=== PATIENT | male | born 1955 | race Caucasian/White ===

== ENCOUNTER 2017-04-02 08:56 | Inpatient (IN) | payer BC ==
[2017-04-02] MEDS ORDERED: Sodium Chloride 0.9% 1,000 ML IV ONE ×2 (09:38→10:29)
[2017-04-02] MEDS ORDERED: Sodium Chloride 0.9% 10 ML Syringe FLUSH PRN (09:38)
--- NOTE | 2017-04-02 09:53 | EDM.PDOC ---
ED HPI GENERAL MEDICAL PROBLEM - General Chief Complaint: Headache Stated Complaint: ? FLU Time Seen by Provider: 04/02/17 09:38 Source of Information: Reports: Patient History Limitations: Reports: No Limitations - History of Present Illness INITIAL COMMENTS - FREE TEXT/NARRATIVE: patient comes emergency Department today with complaints of cough congestion has been going on for the past 7 days. He has had a headache cough congestion and shortness of breath for the past 7 days. He has had a subjective fever and chills. He has not checked his temperature. He has recently developed a congested cough that is green mucus and production. He does smoke 2 packs of cigarettes a day. He denies any past medical history medication taking. He does complain of some diarrhea as well over the past 2-3 days. He denies any vomiting but has had some nausea. No abdominal pain. No hematuria dysuria or urinary frequency. He does complain of generalized fatigue and malaise although he does not have any body aches. He has not tried anything for his symptoms over the past week. He has not been evaluated for this over the past week.denies any chest pain or pressure in his chest. Headache Pain Score (Numeric/FACES): 4 - Related Data Allergies Allergy/AdvReac Type Severity Reaction Status Date / Time No Known Allergies Allergy Verified 04/02/17 11:27 Home Meds: Home Meds . [No Known Home Meds] 04/02/17 [History] Past Medical History - Past Surgical History Musculoskeletal Surgical History: Reports: Other (See Below) Other Musculoskeletal Surgeries/Procedures:: back surgery Social & Family History - Tobacco Use Smoking Status *Q: Current Every Day Smoker Years of Tobacco use: 30 Packs/Tins Daily: 2 - Caffeine Use Caffeine Use: Reports: Coffee, Soda - Alcohol Use Days Per Week of Alcohol Use: 3 Number of Drinks Per Day: 6 Total Drinks Per Week: 18 - Recreational Drug Use Recreational Drug Use: No ED ROS GENERAL - Review of Systems Review Of Systems: ROS reveals no pertinent complaints other than HPI. ED EXAM, GENERAL - Physical Exam Exam: See Below Exam Limited By: No Limitations General Appearance: Alert, WD/WN Eye Exam: Bilateral Eye: Normal Inspection Ears: Normal External Exam, Normal Canal, Normal TMs Ear Exam: Bilateral Ear: Auricle Normal, TM normal Nose: Normal Inspection, Normal Mucosa, No Blood Throat/Mouth: Normal Inspection, Normal Lips, Normal Teeth, Normal Gums, Normal Oropharynx, Normal Voice Head: Atraumatic, Normocephalic Neck: Normal Inspection, Supple, Non-Tender, Full Range of Motion Respiratory/Chest: No Respiratory Distress, No Accessory Muscle Use, Decreased Breath Sounds (throughout.), Wheezing (inspiratory and expiratory mild bilaterally.). No: Rales, Rhonchi, Stridor, Accessory Muscle Use Cardiovascular: Normal Peripheral Pulses, Regular Rate, Rhythm, No Edema, No JVD , No Murmur, No Rub GI/Abdominal: Normal Bowel Sounds, Soft, Non-Tender, No Organomegaly, No Distention, No Abnormal Bruit (Male) Exam: Deferred Rectal (Males) Exam: Deferred Back Exam: Normal Inspection, Full Range of Motion Extremities: Normal Inspection, Normal Range of Motion, Non-Tender, No Pedal Edema, Normal Capillary Refill Neurological: Alert, Oriented, CN II-XII Intact Psychiatric: Normal Affect, Normal Mood Skin Exam: Warm, Dry, Intact, Normal Color Course - Vital Signs Last Recorded V/S: Last Vital Signs Temp 37.9 C 04/02/17 15:31 Pulse 73 04/02/17 15:31 Resp 20 04/02/17 15:31 BP 124/76 04/02/17 15:31 Pulse Ox 95 04/02/17 15:31 Vital Signs 04/02/17 15:31 Temperature [ 37.9 C Temporal] Pulse, 73 Peripheral [ Left Pulse Oximetry] Respiratory 20 Rate Blood Pressure 124/76 [Right Upper Arm] O2 Sat by Pulse 95 Oximetry - Orders/Labs/Meds Orders: Active Orders 24 hr Category Date Time Status Peripheral IV Care [RC] 09,21 Care 04/02/17 09:38 Active RT Aerosol Therapy [RC] ASDIRECTED Care 04/02/17 10:40 Active CULTURE BLOOD [BC] Stat Lab 04/02/17 11:00 Received CULTURE BLOOD [BC] Stat Lab 04/02/17 11:05 Results CULTURE SPUTUM + SMEAR [RM] Stat Lab 04/02/17 12:15 Results Sodium Chloride 0.9% [Saline Flush] Med 04/02/17 09:38 Active 10 ml FLUSH ASDIRECTED PRN Blood Culture x2 Reflex Set [OM.PC] Stat Oth 04/02/17 10:47 Ordered Peripheral IV Insertion Adult [OM.PC] Stat Oth 04/02/17 09:38 Ordered Medication Orders Acetaminophen (Tylenol) 650 mg PO Q4H PRN PRN Reason: Pain (Mild 1-3)/fever Albuterol/Ipratropium (Duoneb 3.0-0.5 Mg/3 Ml) 3 ml NEB Q6HRRT PRN PRN Reason: sob Guaifenesin (Robitussin) 100 mg PO Q6H PRN PRN Reason: Cough Heparin Sodium (Porcine) (Heparin Sodium) 5,000 units SUBCUT Q8HR [facility] Last Admin: 04/02/17 21:42 Dose: 5,000 units Admin: 04/02/17 14:50 Dose: 5,000 units Azithromycin 500 mg/ Sodium (Chloride) 250 mls @ 250 mls/hr IV Q24H SANDRA Ceftriaxone Sodium 1,000 mg/ (Sodium Chloride) 50 mls @ 100 mls/hr IV Q24H SANDRA Potassium Chloride/Sodium Chloride (Normal Saline With 20 Meq Kcl) 1,000 mls @ 75 mls/hr IV ASDIRECTED [facility] Last Admin: 04/02/17 13:18 Dose: 75 mls/hr Ibuprofen (Motrin) 400 mg PO Q6H PRN PRN Reason: Pain (moderate 4-6) Nicotine (Habitrol) 21 mg TRDERM DAILY [facility] Last Admin: 04/02/17 12:09 Dose: 21 mg Ondansetron HCl (Zofran Odt) 4 mg PO Q4H PRN PRN Reason: nausea, able to take PO Pantoprazole Sodium (Protonix) 40 mg PO BIDAC [facility] Last Admin: 04/02/17 21:10 Dose: 40 mg Sodium Chloride (Saline Flush) 10 ml FLUSH ASDIRECTED PRN PRN Reason: Keep Vein Open Last Admin: 04/02/17 09:55 Dose: 10 ml Zolpidem Tartrate (Ambien) 5 mg PO BEDTIME PRN PRN Reason: Sleep Last Admin: 04/02/17 21:42 Dose: 5 mg Labs: Laboratory Tests 04/02/17 04/02/17 04/02/17 Range/Units 09:48 09:48 09:48 WBC 14.8 H (5.0-10.0) 10^3/uL RBC 5.10 (4.6-6.2) 10^6/uL Hgb 16.1 (14.0-18.0) g/dL Hct 43.1 (40.0-54.0) % MCV 84.5 (80-100) fL MCH 31.6 (27.0-34.0) pg MCHC 37.4 H (33.0-35.0) g/dL Plt Count 146 L (150-450) 10^3/uL Neut % (Auto) 82.5 H (42.2-75.2) % Lymph % (Auto) 10.2 L (20.5-50.1) % Garrett % (Auto) 7.2 (2-8) % Eos % (Auto) 0.0 L (1.0-3.0) % Baso % (Auto) 0.1 (0.0-1.0) % Sodium 116 L* (135-145) mmol/L Potassium 4.7 (3.6-5.0) mmol/L Chloride 80 L (101-111) mmol/L Carbon Dioxide 26.0 (21.0-31.0) mmol/L Anion Gap 14.7 BUN 10 (7-18) mg/dL Creatinine 0.6 (0.6-1.3) mg/dL Est Cr Clr Drug Dosing 134.40 mL/min Estimated GFR (MDRD) > 60 BUN/Creatinine Ratio 16.66 Glucose 125 H (74-105) mg/dL Lactic Acid (0.5-2.2) mmol/L Calcium 8.3 L (8.4-10.2) mg/dl Magnesium (1.8-2.5) mg/dL Total Bilirubin 0.5 (0.2-1.0) mg/dL AST 34 (10-42) IU/L ALT 22 (10-60) IU/L Alkaline Phosphatase 70 (42-121) IU/L C-Reactive Protein 15.1 H (0.0-1.3) mg/dL Total Protein 6.5 L (6.7-8.2) g/dl Albumin 3.5 (3.2-5.5) g/dl Globulin 3.0 Albumin/Globulin Ratio 1.17 18 04/02/17 Range/Units 09:48 09:48 WBC (5.0-10.0) 10^3/uL RBC (4.6-6.2) 10^6/uL Hgb (14.0-18.0) g/dL Hct (40.0-54.0) % MCV (80-100) fL MCH (27.0-34.0) pg MCHC (33.0-35.0) g/dL Plt Count (150-450) 10^3/uL Neut % (Auto) (42.2-75.2) % Lymph % (Auto) (20.5-50.1) % Garrett % (Auto) (2-8) % Eos % (Auto) (1.0-3.0) % Baso % (Auto) (0.0-1.0) % Sodium (135-145) mmol/L Potassium (3.6-5.0) mmol/L Chloride (101-111) mmol/L Carbon Dioxide (21.0-31.0) mmol/L Anion Gap BUN (7-18) mg/dL Creatinine (0.6-1.3) mg/dL Est Cr Clr Drug Dosing mL/min Estimated GFR (MDRD) BUN/Creatinine Ratio Glucose (74-105) mg/dL Lactic Acid 1.4 (0.5-2.2) mmol/L Calcium (8.4-10.2) mg/dl Magnesium 1.7 L (1.8-2.5) mg/dL Total Bilirubin (0.2-1.0) mg/dL AST (10-42) IU/L ALT (10-60) IU/L Alkaline Phosphatase (42-121) IU/L C-Reactive Protein (0.0-1.3) mg/dL Total Protein (6.7-8.2) g/dl Albumin (3.2-5.5) g/dl Globulin Albumin/Globulin Ratio Meds: Medications Generic Name Dose Route Start Last Admin Trade Name Freq PRN Reason Stop Dose Admin Acetaminophen 650 mg 04/02/17 11:54 Tylenol PO Q4H PRN Pain (Mild 1-3)/fever Albuterol/Ipratropium 3 ml 04/02/17 11:50 Duoneb 3.0-0.5 Mg/3 Ml NEB Q6HRRT PRN sob Guaifenesin 100 mg 04/02/17 11:53 Robitussin PO Q6H PRN Cough Heparin Sodium (Porcine) 5,000 units 04/02/17 14:00 04/02/17 21:42 Heparin Sodium SUBCUT 5,000 units Q8HR SANDRA Administration Azithromycin 500 mg/ Sodium 250 mls @ 250 mls/hr 04/03/17 12:00 Chloride IV Q24H SANDRA Ceftriaxone Sodium 1,000 mg/ 50 mls @ 100 mls/hr 04/03/17 12:00 Sodium Chloride IV Q24H SANDRA Potassium Chloride/Sodium Chloride 1,000 mls @ 75 mls/hr 04/02/17 12:00 04/02 13:18 Normal Saline With 20 Meq Kcl IV 75 mls/hr ASDIRECTED SANDRA Administration Ibuprofen 400 mg 04/02/17 11:54 Motrin PO Q6H PRN Pain (moderate 4-6) Nicotine 21 mg 04/02/17 13:00 04/02/17 12:09 Habitrol TRDERM 21 mg DAILY SANDRA Administration Ondansetron HCl 4 mg 04/02/17 11:54 Zofran Odt PO Q4H PRN nausea, able to take PO Pantoprazole Sodium 40 mg 04/02/17 21:00 04/02/17 21:10 Protonix PO 40 mg BIDAC SANDRA Administration Sodium Chloride 10 ml 04/02/17 09:38 04/02/17 09:55 Saline Flush FLUSH 10 ml ASDIRECTED PRN Administration Keep Vein Open Zolpidem Tartrate 5 mg 04/02/17 11:54 04/02/17 21:42 Ambien PO 5 mg BEDTIME PRN Administration Sleep Discontinued Medications Generic Name Dose Route Start Last Admin Trade Name Freq PRN Reason Stop Dose Admin Albuterol/Ipratropium 3 ml 04/02/17 10:39 04/02/17 10:52 Duoneb 3.0-0.5 Mg/3 Ml NEB 04/02/17 10:40 3 ml ONETIME ONE Administration Ceftriaxone Sodium 1 gm 04/02/17 10:47 04/02/17 11:05 Rocephin IVPUSH 04/02/17 10:48 1 gm ONETIME ONE Administration Sodium Chloride 1,000 mls @ 999 mls/hr 04/02/17 09:38 04/02/17 13:17 Normal Saline IV 04/02/17 10:38 Infused .BOLUS ONE Infusion Sodium Chloride 1,000 mls @ 999 mls/hr 04/02/17 10:29 04/02/17 12:28 Normal Saline IV 04/02/17 11:29 999 mls/hr .BOLUS ONE Infusion Azithromycin 500 mg/ Sodium 250 mls @ 250 mls/hr 04/02/17 10:47 04/02/17 11: 05 Chloride IV 04/02/17 11:46 250 mls/hr ONETIME ONE Administration - Radiology Interpretation Free Text/Narrative:: Chest x-ray per radiology patchy opacity right middle lobe consistent with atelectasis and/or pneumonia. Hyperinflation consistent with COPD. - Re-Assessments/Exams Free Text/Narrative Re-Assessment/Exam: 04/02/17 10:56 I reviewed the laboratory findings with the patient as well as his chest x-ray. I explained to him it is most likely consistent with a COPD exacerbation although he's never been diagnosed with it. With his 2 pack a day smoking history ever since he was a very young child this a probably be a new diagnosis for COPD although he needs pulmonary function tests to be definitive. With his elevated white count as well as his severe hyponatremia without confusion I feel that inpatient management is appropriate at this time. He was given Rocephin as well as azithromycin in the emergency department and a DuoNeb with improvement of shortness of breath. We are unable to test him for influenza as we're out of testing kits. He'll be admitted for further care management and workup. Departure - Departure Time of Disposition: 10:54 Disposition: Admitted As Inpatient 68 Clinical Impression: Hyponatremia, Acute exacerbation of chronic obstructive pulmonary disease (COPD ) - Discharge Information ED Communication - Discussed Case With (1) Discussed Case With (1): Admitting Provider (Dr. Davidson, [facility] ER COURSE findings and concerns were relayed to DR. Davidson especially the hyponatremia and new diagnosis of COPD. He accepted the patient in admit at this time. The patient is comfortable with the plan.) - My Orders Last 24 Hours: My Active Orders 04/02/17 09:38 Peripheral IV Care [RC] 09,21 Sodium Chloride 0.9% [Saline Flush] 10 ml FLUSH ASDIRECTED PRN Peripheral IV Insertion Adult [OM.PC] Stat 04/02/17 10:40 RT Aerosol Therapy [RC] ASDIRECTED 04/02/17 10:47 Blood Culture x2 Reflex Set [OM.PC] Stat 04/02/17 11:00 CULTURE BLOOD [BC] Stat 04/02/17 11:05 CULTURE BLOOD [BC] Stat 04/02/17 12:15 CULTURE SPUTUM + SMEAR [RM] Stat - Assessment/Plan Last 24 Hours: My Active Orders 04/02/17 09:38 Peripheral IV Care [RC] 09,21 Sodium Chloride 0.9% [Saline Flush] 10 ml FLUSH ASDIRECTED PRN Peripheral IV Insertion Adult [OM.PC] Stat 04/02/17 10:40 RT Aerosol Therapy [RC] ASDIRECTED 04/02/17 10:47 Blood Culture x2 Reflex Set [OM.PC] Stat 04/02/17 11:00 CULTURE BLOOD [BC] Stat 04/02/17 11:05 CULTURE BLOOD [BC] Stat 04/02/17 12:15 CULTURE SPUTUM + SMEAR [RM] Stat Assessment:: New diagnosis of COPD, with acute exacerbation. RML pneumonia vs atelectasis most likely pneumonia with elevated WBC. Severe hyponatremia without confusion. Plan[facility] for further care and management.
[2017-04-02 10:14] LABS: CHLORIDE,CL 80 mmol/L (101-111)
[2017-04-02 10:22] LABS: SODIUM,NA 116 mmol/L (135-145)
[2017-04-02] MEDS ORDERED: Albuterol/Ipratropium 3.0-0.5 MG/3 ML Neb Soln NEB ONE (10:39)
[2017-04-02] MEDS ORDERED: Azithromycin 500 MG in Sodium Chloride 0.9% 250 ML IV ONE (10:47)
[2017-04-02] MEDS ORDERED: cefTRIAXone 1 GM Vial IVPUSH ONE (10:47)
[2017-04-02] MEDS ORDERED: Albuterol/Ipratropium 3.0-0.5 MG/3 ML Neb Soln NEB PRN (11:50)
[2017-04-02] MEDS ORDERED: guaiFENesin 100 MG/5 ML Soln 5 ML UD Cup PO PRN (11:53)
[2017-04-02] MEDS ORDERED: Ibuprofen 400 MG Tab PO PRN (11:54)
[2017-04-02] MEDS ORDERED: Ondansetron 4 MG Tab.DIS PO PRN (11:54)
[2017-04-02] MEDS ORDERED: Acetaminophen 325 MG Tab PO PRN (11:54)
--- NOTE | 2017-04-02 12:06 | PCM.HP ---
H&P History of Present Illness - General Date of Service: 04/02/17 Admit Problem/Dx: Admission Diagnosis/Problem Admission Diagnosis/Problem Hyponatremia Source of Information: Patient - History of Present Illness Initial Comments - Free Text/Narative: The patient is a 62-year-old gentleman who has not been following with medical services. He has been smoking heavily about 2 packs per day and drinking twice a week 6 beers a day. He is taking no medication. He lives alone About a week prior to this presentation the patient has developed subjective fever, chills, diarrhea, diffuse muscle ache. Had an episode of nausea yesterday and has very little oral intake. He has been trying to drink a lot of water. Has cough with greenish sputum production. This is associated with mild shortness of breath. Headache Pain Score (Numeric/FACES): 4 - Related Data Allergies/Adverse Reactions: Allergies Allergy/AdvReac Type Severity Reaction Status Date / Time No Known Allergies Allergy Verified 04/02/17 11:27 Home Medications: Home Meds . [No Known Home Meds] 04/02/17 [History] Past Medical History Respiratory History: Reports: Bronchitis, Recurrent - Infectious Disease History Infectious Disease History: Reports: Chicken Pox - Past Surgical History Musculoskeletal Surgical History: Reports: Other (See Below) Other Musculoskeletal Surgeries/Procedures:: back surgery Social & Family History - Family History Family Medical History: Noncontributory - Tobacco Use Smoking Status *Q: Current Every Day Smoker Years of Tobacco use: 30 Packs/Tins Daily: 2 Second Hand Smoke Exposure: No - Caffeine Use Caffeine Use: Reports: Coffee, Soda - Alcohol Use Days Per Week of Alcohol Use: 3 Number of Drinks Per Day: 6 Total Drinks Per Week: 18 - Recreational Drug Use Recreational Drug Use: No H&P Review of Systems - Review of Systems: Review Of Systems: See Below General: Reports: Fever, Chills, Malaise (Subjective), Weakness, Fatigue HEENT: Reports: Sore Throat Pulmonary: Reports: Shortness of Breath (Mild). Denies: Wheezing Cardiovascular: Denies: Chest Pain, Palpitations, Edema Gastrointestinal: Reports: Diarrhea, Nausea Psychiatric: Denies: Confusion Exam - Exam Exam: See Below - Vital Signs Vital Signs: Last Vital Signs Temp 36.6 C 04/02/17 11:26 Pulse 80 04/02/17 11:26 Resp 20 04/02/17 11:26 BP 142/70 H 04/02/17 11:26 Pulse Ox 98 04/02/17 11:26 Weight: 69.853 kg - Exam General: Alert, Oriented Neck: Supple Lungs: Clear to Auscultation, Normal Respiratory Effort. No: Wheezing Cardiovascular: Regular Rate, Regular Rhythm GI/Abdominal Exam: Normal Bowel Sounds, Soft, Non-Tender, No Distention Back Exam: Normal Inspection Extremities: No Pedal Edema Skin: Warm, Dry, Intact Neuro Extensive - Mental Status: Alert, Oriented x3, Normal Mood/Affect Neuro Extensive - Motor, Sensory, Reflexes: Normal Gait Psychiatric: Alert, Normal Affect, Normal Mood - Patient Data Result Diagrams: 04/02/17 09:48 04/02/17 09:48 *Q Meaningful Use (ADM) - VTE *Q VTE Criteria *Q: - Stroke *Q Stroke Criteria *Q: - AMI *Q AMI Criteria *Q: - Problem List (1) Pneumonia and influenza Status: Acute Current Visit: Yes (2) Acute exacerbation of chronic obstructive pulmonary disease (COPD) SNOMED Code(s): 458913667 ICD Code: J44.1 - CHRONIC OBSTRUCTIVE PULMONARY DISEASE W (ACUTE) EXACERBATION Status: Acute Current Visit: Yes (3) Hyponatremia SNOMED Code(s): 71237822 ICD Code: E87.1 - HYPO-OSMOLALITY AND HYPONATREMIA Status: Acute Current Visit: Yes Problem List Initiated/Reviewed/Updated: Yes Orders Last 24hrs: Active Orders 24 hr Category Date Time Status Patient Status [ADT] Routine ADT 04/02/17 11:54 Ordered Antiembolic Devices [RC] PER UNIT ROUTINE Care 04/02/17 11:56 Ordered Oxygen Therapy [RC] PRN Care 04/02/17 11:54 Ordered RT Aerosol Therapy [RC] ASDIRECTED Care 04/02/17 11:50 Ordered Up With Assistance [RC] ASDIRECTED Care 04/02/17 11:54 Ordered VTE/DVT Education [RC] PER UNIT ROUTINE Care 04/02/17 11:54 Ordered Vital Signs [RC] Q4H Care 04/02/17 11:54 Ordered Regular Diet [DIET] Diet 04/02/17 Lunch Ordered BASIC METABOLIC PANEL,BMP [CHEM] AM Lab 04/03/17 05:15 Ordered BASIC METABOLIC PANEL,BMP [CHEM] Routine Lab 04/02/17 16:00 Ordered CBC WITH AUTO DIFF [HEME] AM Lab 04/03/17 05:15 Ordered Acetaminophen [Tylenol] Med 04/02/17 11:54 Ordered 650 mg PO Q4H PRN Albuterol/Ipratropium [DuoNeb 3.0-0.5 MG/3 ML] Med 04/02/17 11:50 Ordered 3 ml NEB Q6HRRT PRN Azithromycin [Zithromax] 500 mg Med 04/03/17 12:00 Ordered Sodium Chloride 0.9% [Normal Saline] 250 ml IV Q24H Heparin Sodium Med 04/02/17 14:00 Ordered 5,000 units SUBCUT Q8HR Ibuprofen [Motrin] Med 04/02/17 11:54 Ordered 400 mg PO Q6H PRN Nicotine [Habitrol] Med 04/02/17 13:00 Ordered 21 mg TRDERM DAILY Ondansetron [Zofran ODT] Med 04/02/17 11:54 Ordered 4 mg PO Q4H PRN Sodium Chloride 0.9% with KCl 20 mEq @ 75 mL/Hr (1000 Med 04/02/17 12:00 Ordered mL) NS + KCl 20mEq/L [Normal Saline with 20 mEq KCl] 1,000 ml IV ASDIRECTED Zolpidem [Ambien] Med 04/02/17 11:54 Ordered 5 mg PO BEDTIME PRN cefTRIAXone [Rocephin] 1,000 mg Med 04/03/17 12:00 Ordered Sodium Chloride 0.9% [Normal Saline] 50 ml IV Q24H guaiFENesin [Robitussin] Med 04/02/17 11:53 Ordered 100 mg PO Q6H PRN Antiembolic Hose [OM.PC] Per Unit Routine Oth 04/02/17 11:55 Ordered Resuscitation Status Routine Resus Stat 04/02/17 11:54 Ordered Medication Orders Acetaminophen (Tylenol) 650 mg PO Q4H PRN PRN Reason: Pain (Mild 1-3)/fever Albuterol/Ipratropium (Duoneb 3.0-0.5 Mg/3 Ml) 3 ml NEB Q6HRRT PRN PRN Reason: sob Guaifenesin (Robitussin) 100 mg PO Q6H PRN PRN Reason: Cough Heparin Sodium (Porcine) (Heparin Sodium) 5,000 units SUBCUT Q8HR SANDRA Azithromycin 500 mg/ Sodium (Chloride) 250 mls @ 250 mls/hr IV Q24H SANDRA Ceftriaxone Sodium 1,000 mg/ (Sodium Chloride) 50 mls @ 100 mls/hr IV Q24H SANDRA Potassium Chloride/Sodium Chloride (Normal Saline With 20 Meq Kcl) 1,000 mls @ 75 mls/hr IV ASDIRECTED SANDRA Ibuprofen (Motrin) 400 mg PO Q6H PRN PRN Reason: Pain (moderate 4-6) Nicotine (Habitrol) 21 mg TRDERM DAILY SANDRA Ondansetron HCl (Zofran Odt) 4 mg PO Q4H PRN PRN Reason: nausea, able to take PO Sodium Chloride (Saline Flush) 10 ml FLUSH ASDIRECTED PRN PRN Reason: Keep Vein Open Last Admin: 04/02/17 09:55 Dose: 10 ml Zolpidem Tartrate (Ambien) 5 mg PO BEDTIME PRN PRN Reason: Sleep Assessment/Plan Comment:: The patient is a 62-year-old with no significant medical history. He has been a heavy smoker all his life. Presented with muscle ache chills, subjective fever, sore throat, Noted to have a right middle lobe opacity on chest x-ray. #1 likely acute influenza or other upper respiratory tract viral infection Unfortunately, as a testing acute is not available. Symptoms started a week ago, I do not think he would benefit from Tamiflu treatment. Supportive management with IV fluids Tylenol. There is concern for bacterial superinfection with cough, green sputum, possible bacterial pneumonia. We will obtain sputum culture, blood culture. Treat empirically with azithromycin and ceftriaxone. #2 severe hyponatremia This is likely acute. Free water intake, diarrhea, infectious symptoms. The patient received normal saline IV fluid in the emergency room. Continue hydration. Recheck sodium in about 4 hours. #3 smoking cessation was discussed #4 DVT prophylaxis will be subcutaneous heparin
[2017-04-02] MEDS: Nicotine 21 MG/24 Hr Patch TRDERM SCH (12:09)
[2017-04-02] MEDS: NS + KCl 20mEq/L 1,000 ML IV SCH (13:18)
[2017-04-02] MEDS: Heparin Sodium 5,000 Units/ML Vial SUBCUT SCH ×2 (14:50→21:42)
[2017-04-02 16:23] LABS: CHLORIDE,CL 86 mmol/L (101-111)
[2017-04-02 16:26] LABS: SODIUM,NA 119 mmol/L (135-145)
[2017-04-02] MEDS: Pantoprazole 40 MG Tab.CR PO SCH (21:10)
[2017-04-02] MEDS: Zolpidem 5 MG Tab PO PRN (21:42)
[2017-04-03] MEDS: NS + KCl 20mEq/L 1,000 ML IV SCH ×2 (01:54→17:37)
[2017-04-03] MEDS: Pantoprazole 40 MG Tab.CR PO SCH ×2 (06:08→16:56)
[2017-04-03] MEDS: Heparin Sodium 5,000 Units/ML Vial SUBCUT SCH ×3 (06:09→21:36)
[2017-04-03 06:39] LABS: CHLORIDE,CL 91 mmol/L (101-111); SODIUM,NA 122 mmol/L (135-145)
[2017-04-03] MEDS: Nicotine 21 MG/24 Hr Patch TRDERM SCH (08:58)
[2017-04-03] MEDS ORDERED: cefTRIAXone 1,000 MG in Sodium Chloride 0.9% 50 ML IV SCH (12:00)
[2017-04-03] MEDS ORDERED: Azithromycin 500 MG in Sodium Chloride 0.9% 250 ML IV SCH (12:00)
[2017-04-03] MEDS: Sodium Chloride 1 GM Tab PO SCH ×2 (13:05→20:41)
[2017-04-03 16:31] LABS: CHLORIDE,CL 93 mmol/L (101-111); SODIUM,NA 123 mmol/L (135-145)
--- NOTE | 2017-04-03 17:13 | PCM.PN ---
- General Info Date of Service: 04/03/17 Admission Dx/Problem (Free Text): Admission Diagnosis/Problem Admission Diagnosis/Problem Hyponatremia Subjective Update: Feeling better, less cough. Less shortness of breath. No associated chest pain. Has been up and moving around. - Review of Systems General: Denies: Fever, Weakness Pulmonary: Denies: Shortness of Breath Cardiovascular: Denies: Chest Pain, Edema Genitourinary: Denies: Dysuria - Patient Data Vitals - Most Recent: Last Vital Signs Temp 36.8 C 04/03/17 15:54 Pulse 80 04/03/17 15:54 Resp 20 04/03/17 15:54 BP 130/86 04/03/17 15:54 Pulse Ox 97 04/03/17 15:54 Weight - Most Recent: 69.853 kg I&O - Last 24 Hours: Intake & Output 04/03/17 04/03/17 04/03/17 06:59 14:59 22:59 Intake Total 828 1843 200 Output Total 350 Balance 478 1843 200 Lab Results Last 24 Hours: Laboratory Results - last 24 hr 04/03/17 04/03/17 04/03/17 Range/Units 05:50 05:50 16:03 WBC 11.8 H (5.0-10.0) 10^3/uL RBC 4.24 L (4.6-6.2) 10^6/uL Hgb 13.3 L D (14.0-18.0) g/dL Hct 36.9 L (40.0-54.0) % MCV 87.0 (80-100) fL MCH 31.4 (27.0-34.0) pg MCHC 36.0 H (33.0-35.0) g/dL Plt Count 171 (150-450) 10^3/uL Neut % (Auto) 72.8 (42.2-75.2) % Lymph % (Auto) 15.5 L (20.5-50.1) % [place] % (Auto) 11.5 H (2-8) % Eos % (Auto) 0.1 L (1.0-3.0) % Baso % (Auto) 0.1 (0.0-1.0) % Sodium 122 L 123 L (135-145) mmol/L Potassium 4.9 4.6 (3.6-5.0) mmol/L Chloride 91 L 93 L (101-111) mmol/L Carbon Dioxide 25.0 22.0 (21.0-31.0) mmol/L Anion Gap 10.9 12.6 BUN 6 L 9 (7-18) mg/dL Creatinine 0.7 0.6 (0.6-1.3) mg/dL Est Cr Clr Drug Dosing 110.88 129.36 mL/min Estimated GFR (MDRD) > 60 > 60 Glucose 95 80 (74-105) mg/dL Calcium 8.0 L 7.8 L (8.4-10.2) mg/dl Justin Results Last 24 Hours: Microbiology 04/02/17 12:15 Gram Stain - Final Sputum - Expectorated Sputum Culture - Preliminary Med Orders - Current: Current Medications Acetaminophen (Tylenol) 650 mg PO Q4H PRN PRN Reason: Pain (Mild 1-3)/fever Albuterol/Ipratropium (Duoneb 3.0-0.5 Mg/3 Ml) 3 ml NEB Q6HRRT PRN PRN Reason: sob Guaifenesin (Robitussin) 100 mg PO Q6H PRN PRN Reason: Cough Last Admin: 04/02/17 23:02 Dose: 100 mg Heparin Sodium (Porcine) (Heparin Sodium) 5,000 units SUBCUT Q8HR [facility] Last Admin: 04/03/17 13:36 Dose: 5,000 units Azithromycin 500 mg/ Sodium (Chloride) 250 mls @ 250 mls/hr IV Q24H [facility] Last Infusion: 04/03/17 15:17 Dose: Infused Ceftriaxone Sodium 1,000 mg/ (Sodium Chloride) 50 mls @ 100 mls/hr IV Q24H [facility] Last Admin: 04/03/17 12:30 Dose: 100 mls/hr Potassium Chloride/Sodium Chloride (Normal Saline With 20 Meq Kcl) 1,000 mls @ 75 mls/hr IV ASDIRECTED [facility] Last Admin: 04/03/17 01:54 Dose: 75 mls/hr Ibuprofen (Motrin) 400 mg PO Q6H PRN PRN Reason: Pain (moderate 4-6) Nicotine (Habitrol) 21 mg TRDERM DAILY [facility] Last Admin: 04/03/17 08:58 Dose: 21 mg Ondansetron HCl (Zofran Odt) 4 mg PO Q4H PRN PRN Reason: nausea, able to take PO Pantoprazole Sodium (Protonix) 40 mg PO BIDAC [facility]DRA Last Admin: 04/03/17 16:56 Dose: 40 mg Sodium Chloride (Saline Flush) 10 ml FLUSH ASDIRECTED PRN PRN Reason: Keep Vein Open Last Admin: 04/02/17 09:55 Dose: 10 ml Sodium Chloride (Sodium Chloride) 1 gm PO TID SANDRA Last Admin: 04/03/17 13:05 Dose: 1 gm Zolpidem Tartrate (Ambien) 5 mg PO BEDTIME PRN PRN Reason: Sleep Last Admin: 04/02/17 21:42 Dose: 5 mg Discontinued Medications Albuterol/Ipratropium (Duoneb 3.0-0.5 Mg/3 Ml) 3 ml NEB ONETIME ONE Stop: 04/02/17 10:40 Last Admin: 04/02/17 10:52 Dose: 3 ml Ceftriaxone Sodium (Rocephin) 1 gm IVPUSH ONETIME ONE Stop: 04/02/17 10:48 Last Admin: 04/02/17 11:05 Dose: 1 gm Sodium Chloride (Normal Saline) 1,000 mls @ 999 mls/hr IV .BOLUS ONE Stop: 04/02/17 10:38 Last Infusion: 04/02/17 13:17 Dose: Infused Sodium Chloride (Normal Saline) 1,000 mls @ 999 mls/hr IV .BOLUS ONE Stop: 04/02/17 11:29 Last Infusion: 04/02/17 12:28 Dose: 999 mls/hr Azithromycin 500 mg/ Sodium (Chloride) 250 mls @ 250 mls/hr IV ONETIME ONE Stop: 04/02/17 11:46 Last Admin: 04/02/17 11:05 Dose: 250 mls/hr - Exam General: Alert, Oriented Neck: Supple Lungs: Normal Respiratory Effort, Decreased Breath Sounds Cardiovascular: Regular Rate, Regular Rhythm GI/Abdominal Exam: Normal Bowel Sounds, Soft, Non-Tender Extremities: No Pedal Edema Skin: Warm, Dry Psy/Mental Status: Alert, Normal Affect, Normal Mood - Problem List & Annotations (1) Pneumonia and influenza Status: Acute Current Visit: Yes (2) Acute exacerbation of chronic obstructive pulmonary disease (COPD) SNOMED Code(s): 636329270 Code(s): J44.1 - CHRONIC OBSTRUCTIVE PULMONARY DISEASE W (ACUTE) EXACERBATION Status: Acute Current Visit: Yes (3) Hyponatremia SNOMED Code(s): 08632800 Code(s): E87.1 - HYPO-OSMOLALITY AND HYPONATREMIA Status: Acute Current Visit: Yes - Problem List Review Problem List Initiated/Reviewed/Updated: Yes - My Orders Last 24 Hours: My Active Orders 04/02/17 21:00 Pantoprazole [ProTONIX] 40 mg PO BIDAC 04/03/17 12:00 Azithromycin [Zithromax] 500 mg Sodium Chloride 0.9% [Normal Saline] 250 ml IV Q24H cefTRIAXone [Rocephin] 1,000 mg Sodium Chloride 0.9% [Normal Saline] 50 ml IV Q24H 04/03/17 14:00 Sodium Chloride 1 gm PO TID 04/04/17 05:15 BASIC METABOLIC PANEL,BMP [CHEM] AM CBC WITH AUTO DIFF [HEME] AM - Plan Plan:: The patient is a 62-year-old with no significant medical history. He has been a heavy smoker all his life. Presented with muscle ache chills, subjective fever, sore throat, Noted to have a right middle lobe opacity on chest x-ray. #1 likely acute influenza or other upper respiratory tract viral infection Unfortunately, as a testing acute is not available. Symptoms started a week ago, I do not think he would benefit from Tamiflu treatment. Supportive management with IV fluids Tylenol. There is concern for bacterial superinfection with cough, green sputum, possible bacterial pneumonia. Pending sputum culture, blood culture. Treat empirically with azithromycin and ceftriaxone. #2 severe hyponatremia This is likely acute due to Free water intake, diarrhea, infectious symptoms. Possible SIADH slowly Improving with normal saline IV fluid Continue hydration. Recheck sodium in Am. start Nacl Tabs free water restriction #3 smoking cessation was discussed #4 DVT prophylaxis will be subcutaneous heparin
[2017-04-03] MEDS: Zolpidem 5 MG Tab PO PRN (21:35)
[2017-04-04] MEDS: Pantoprazole 40 MG Tab.CR PO SCH (05:33)
[2017-04-04] MEDS: Heparin Sodium 5,000 Units/ML Vial SUBCUT SCH (05:35)
[2017-04-04 06:45] LABS: CHLORIDE,CL 95 mmol/L (101-111); SODIUM,NA 125 mmol/L (135-145)
[2017-04-04] MEDS: NS + KCl 20mEq/L 1,000 ML IV SCH (06:46)
--- NOTE | 2017-04-04 09:22 | PCM.DCSUM1 ---
Discharge Summary - Hospital Course Free Text/Narrative:: The patient is a 62-year-old with no significant medical history. He has been a heavy smoker all his life. Presented with muscle ache chills, subjective fever, sore throat, Noted to have a right middle lobe opacity on chest x-ray. #1 likely acute influenza or other upper respiratory tract viral infection Unfortunately, as a testing is not available. Symptoms started a week ago, I do not think he would benefit from Tamiflu treatment. Treated with supportive management with IV fluids Tylenol. There is concern for bacterial superinfection with cough, green sputum, possible bacterial pneumonia. Pending sputum culture, blood culture. Treated empirically with azithromycin and ceftriaxone. discharge on Levofloxacin He likely has underlying COPD use albuterol inhaler when necessary #2 severe hyponatremia This is likely acute due to Free water intake, diarrhea, infectious symptoms. Possible SIADH with lung process Urine osm pending, urine Na>100 slowly Improved with normal saline IV fluid free water restriction start Nacl Tabs recheck in a few days #3 smoking cessation was discussed #4 establish PMD - Discharge Data Discharge Date: 04/04/17 Discharge Disposition: Home, Self-Care 01 Condition: Good - Discharge Diagnosis/Problem(s) (1) Pneumonia and influenza Status: Acute Current Visit: Yes (2) Acute exacerbation of chronic obstructive pulmonary disease (COPD) SNOMED Code(s): 753839027 ICD Code: J44.1 - CHRONIC OBSTRUCTIVE PULMONARY DISEASE W (ACUTE) EXACERBATION Status: Acute Current Visit: Yes (3) Hyponatremia SNOMED Code(s): 30605346 ICD Code: E87.1 - HYPO-OSMOLALITY AND HYPONATREMIA Status: Acute Current Visit: Yes - Patient Instructions Diet: Fluid Restriction Activity: As Tolerated - Discharge Plan Prescriptions/Med Rec: Albuterol [IJD: Ventolin HFA] 2 puff INH Q6H PRN #18 gm PRN Reason: sob Levofloxacin 500 mg PO DAILY #7 tablet Nicotine [Nicotine Patch] 21 mg TD DAILY #10 patch.td24 Sodium Chloride 1 gm PO TID #90 tablet Home Medications: Home Meds Albuterol [IJD: Ventolin HFA] 2 puff INH Q6H PRN #18 gm 04/04/17 [Rx] Levofloxacin 500 mg PO DAILY #7 tablet 04/04/17 [Rx] Nicotine [Nicotine Patch] 21 mg TD DAILY #10 patch.td24 04/04/17 [Rx] Sodium Chloride 1 gm PO TID #90 tablet 04/04/17 [Rx] Referrals: PCP,None [Primary Care Provider] - (establish new PMD - any provider - seen on Tuesday with BMP re: hyponatremia, cbc re: pneumonia) - General Info Date of Service: 04/04/17 Subjective Update: Feeling well, less cough. Less shortness of breath. No associated chest pain. Has been up and moving around. - Review of Systems General: Denies: Fever Pulmonary: Denies: Shortness of Breath Gastrointestinal: Denies: Abdominal Pain Neurological: Denies: Confusion - Patient Data Vitals - Most Recent: Last Vital Signs Temp 36.4 C 04/04/17 07:54 Pulse 71 04/04/17 07:54 Resp 20 04/04/17 07:54 BP 128/78 04/04/17 07:54 Pulse Ox 97 04/04/17 07:54 Weight - Most Recent: 69.853 kg I&O - Last 24 hours: Intake & Output 04/03/17 04/04/17 04/04/17 22:59 06:59 14:59 Intake Total 2459 850 Output Total 200 Balance 2259 850 Lab Results - Last 24 hrs: Laboratory Results - last 24 hr 04/03/17 04/03/17 04/04/17 Range/Units 16:03 18:45 06:00 WBC 13.7 H (5.0-10.0) 10^3/uL RBC 4.15 L (4.6-6.2) 10^6/uL Hgb 12.9 L (14.0-18.0) g/dL Hct 36.7 L (40.0-54.0) % MCV 88.4 (80-100) fL MCH 31.1 (27.0-34.0) pg MCHC 35.1 H (33.0-35.0) g/dL Plt Count 221 (150-450) 10^3/uL Neut % (Auto) 72.9 (42.2-75.2) % Lymph % (Auto) 12.3 L (20.5-50.1) % [place] % (Auto) 14.5 H (2-8) % Eos % (Auto) 0.1 L (1.0-3.0) % Baso % (Auto) 0.2 (0.0-1.0) % Add Manual Diff Yes Neutrophils % (Manual) 79 H (42-75) % Lymphocytes % (Manual) 10 L (20-50) % Monocytes % (Manual) 11 H (2-8) % Sodium 123 L (135-145) mmol/L Potassium 4.6 (3.6-5.0) mmol/L Chloride 93 L (101-111) mmol/L Carbon Dioxide 22.0 (21.0-31.0) mmol/L Anion Gap 12.6 BUN 9 (7-18) mg/dL Creatinine 0.6 (0.6-1.3) mg/dL Est Cr Clr Drug Dosing 129.36 mL/min Estimated GFR (MDRD) > 60 Glucose 80 (74-105) mg/dL Calcium 7.8 L (8.4-10.2) mg/dl Ur Random Sodium 106 (40-220) mmol/L /18 Range/Units 06:00 WBC (5.0-10.0) 10^3/uL RBC (4.6-6.2) 10^6/uL Hgb (14.0-18.0) g/dL Hct (40.0-54.0) % MCV (80-100) fL MCH (27.0-34.0) pg MCHC (33.0-35.0) g/dL Plt Count (150-450) 10^3/uL Neut % (Auto) (42.2-75.2) % Lymph % (Auto) (20.5-50.1) % [place] % (Auto) (2-8) % Eos % (Auto) (1.0-3.0) % Baso % (Auto) (0.0-1.0) % Add Manual Diff Neutrophils % (Manual) (42-75) % Lymphocytes % (Manual) (20-50) % Monocytes % (Manual) (2-8) % Sodium 125 L (135-145) mmol/L Potassium 4.3 (3.6-5.0) mmol/L Chloride 95 L (101-111) mmol/L Carbon Dioxide 24.0 (21.0-31.0) mmol/L Anion Gap 10.3 BUN 6 L (7-18) mg/dL Creatinine 0.6 (0.6-1.3) mg/dL Est Cr Clr Drug Dosing 129.36 mL/min Estimated GFR (MDRD) > 60 Glucose 92 (74-105) mg/dL Calcium 8.0 L (8.4-10.2) mg/dl Ur Random Sodium (40-220) mmol/L DIMPLE Results - Last 24 hrs: Microbiology 04/02/17 12:15 Gram Stain - Final Sputum - Expectorated Sputum Culture - Preliminary Med Orders - Current: Current Medications Acetaminophen (Tylenol) 650 mg PO Q4H PRN PRN Reason: Pain (Mild 1-3)/fever Last Admin: 04/04/17 05:33 Dose: 650 mg Albuterol/Ipratropium (Duoneb 3.0-0.5 Mg/3 Ml) 3 ml NEB Q6HRRT PRN PRN Reason: sob Guaifenesin (Robitussin) 100 mg PO Q6H PRN PRN Reason: Cough Last Admin: 04/02/17 23:02 Dose: 100 mg Heparin Sodium (Porcine) (Heparin Sodium) 5,000 units SUBCUT Q8HR [facility] Last Admin: 04/04/17 05:35 Dose: 5,000 units Azithromycin 500 mg/ Sodium (Chloride) 250 mls @ 250 mls/hr IV Q24H [facility] Last Infusion: 04/03/17 15:17 Dose: Infused Ceftriaxone Sodium 1,000 mg/ (Sodium Chloride) 50 mls @ 100 mls/hr IV Q24H [facility] Last Admin: 04/03/17 12:30 Dose: 100 mls/hr Potassium Chloride/Sodium Chloride (Normal Saline With 20 Meq Kcl) 1,000 mls @ 75 mls/hr IV ASDIRECTED [facility] Last Admin: 04/04/17 06:46 Dose: 75 mls/hr Ibuprofen (Motrin) 400 mg PO Q6H PRN PRN Reason: Pain (moderate 4-6) Nicotine (Habitrol) 21 mg TRDERM DAILY [facility] Last Admin: 04/03/17 08:58 Dose: 21 mg Ondansetron HCl (Zofran Odt) 4 mg PO Q4H PRN PRN Reason: nausea, able to take PO Pantoprazole Sodium (Protonix) 40 mg PO BIDAC [facility] Last Admin: 04/04/17 05:33 Dose: 40 mg Sodium Chloride (Saline Flush) 10 ml FLUSH ASDIRECTED PRN PRN Reason: Keep Vein Open Last Admin: 04/02/17 09:55 Dose: 10 ml Sodium Chloride (Sodium Chloride) 1 gm PO TID [facility]DRA Last Admin: 04/03/17 20:41 Dose: 1 gm Zolpidem Tartrate (Ambien) 5 mg PO BEDTIME PRN PRN Reason: Sleep Last Admin: 04/03/17 21:35 Dose: 5 mg Discontinued Medications Albuterol/Ipratropium (Duoneb 3.0-0.5 Mg/3 Ml) 3 ml NEB ONETIME ONE Stop: 04/02/17 10:40 Last Admin: 04/02/17 10:52 Dose: 3 ml Ceftriaxone Sodium (Rocephin) 1 gm IVPUSH ONETIME ONE Stop: 04/02/17 10:48 Last Admin: 04/02/17 11:05 Dose: 1 gm Sodium Chloride (Normal Saline) 1,000 mls @ 999 mls/hr IV .BOLUS ONE Stop: 04/02/17 10:38 Last Infusion: 04/02/17 13:17 Dose: Infused Sodium Chloride (Normal Saline) 1,000 mls @ 999 mls/hr IV .BOLUS ONE Stop: 04/02/17 11:29 Last Infusion: 04/02/17 12:28 Dose: 999 mls/hr Azithromycin 500 mg/ Sodium (Chloride) 250 mls @ 250 mls/hr IV ONETIME ONE Stop: 04/02/17 11:46 Last Admin: 04/02/17 11:05 Dose: 250 mls/hr - Exam General: Reports: Alert, Oriented Neck: Reports: Supple Lungs: Reports: Clear to Auscultation, Normal Respiratory Effort Cardiovascular: Reports: Regular Rate, Regular Rhythm GI/Abdominal Exam: Normal Bowel Sounds, Soft, Non-Tender Extremities: No Pedal Edema *Q Meaningful Use (DIS) - VTE *Q VTE Criteria *Q: - Stroke *Q Stroke Criteria *Q: - AMI *Q AMI Criteria *Q:
[2017-04-04] MEDS: Sodium Chloride 1 GM Tab PO SCH (09:39)
[2017-04-04] MEDS: Nicotine 21 MG/24 Hr Patch TRDERM SCH (09:42)
--- NOTE | 2017-04-06 13:22 | EKG ---
04/02/2017- IRVIN THORPE - FINDINGS: EKG per my reading shows sinus rhythm with right bundle-branch block. [facility] /[id number]
== END 2017-04-04 10:30 | disposition home or self-care (01) | DRG 140 ==
LOC: DL.ED 08:56 → DL.MS 11:18 → UNDOADMIN 11:18 → DL.MS 11:45
PROVIDERS: ADMIT Internal Medicine; ATTEND Internal Medicine
DX: J44.1 Chronic obstructive pulmonary disease with (acute) exacerbation (principal); E87.1 Hypo-osmolality and hyponatremia; F17.200 Nicotine dependence, unspecified, uncomplicated; J44.0 Chronic obstructive pulmonary disease with (acute) lower respiratory infection; J11.00 Influenza due to unidentified influenza virus with unspecified type of pneumonia
CPT/HCPCS: 36415; 71046; 80048; 80053; 83605; 83735; 83935; 84300; 85025; 86140; 87040; 87070; 87205; 93005; 94640; 96361; 96365; 96375; 99285; A9270-GY; J0456; J0696; J1644; J3480; J7030; J7050